=== PATIENT | male | born 1970 | race Caucasian/White ===

== ENCOUNTER 2023-08-10 08:05 | Day surgery (SDC) | payer MEDICAID ==
[2023-07-25 11:09] LABS: BASOPHILS % (AUTO) 0.3 % (0-1); EOSINOPHILS # (AUTO) 0.4 X10'3 (0-0.9); EOSINOPHILS % (AUTO) 4.3 % (0-6); LYMPHOCYTES # (AUTO) 0.6 X10'3 (1.1-4.8); LYMPHOCYTES % (AUTO) 6.3 % (21-51); MEAN CORPUSCULAR HEMOGLOBIN 26.7 PG (27.0-31.0); MEAN CORPUSCULAR HGB CONC 33.9 g/dL (33.0-36.5); MEAN CORPUSCULAR VOLUME 78.7 FL (78-98); MEAN PLATELET VOLUME 6.8 FL (7.4-10.4); MONOCYTES # (AUTO) 0.8 X10'3 (0-0.9); MONOCYTES % (AUTO) 8.5 % (2-12); NEUTROPHILS # (AUTO) 7.2 X10'3 (1.8-7.7); NEUTROPHILS % (AUTO) 80.6 % (42-75); PRE OP HEMATOCRIT 40.1 % (42.0-52.0); PRE OP HEMOGLOBIN 13.6 g/dL (14.0-17.9); PRE OP PLATELET COUNT 250 X10'3 (140-440); PRE OP WHITE BLOOD COUNT 8.9 10'3 (4.8-10.8); RED CELL DISTRIBUTION WIDTH 14.9 % (11.5-14.5)
[2023-07-25 11:30] LABS: ALBUMIN 3.8 G/DL (3.4-5.0); ALKALINE PHOSPHATASE 90 IU/L (46-116); BLOOD UREA NITROGEN 17 MG/DL (7-18); BUN/CREATININE RATIO 16.8 (10.0-20.0); CALCIUM 9.1 MG/DL (8.5-10.1); CHLORIDE 105 MMOL/L (99-107); CREATININE 1.01 MG/DL (0.60-1.10); PRE OP ALT 27 U/L (30-65); PRE OP ANION GAP 9 (8-16); PRE OP AST 16 U/L (10-37); PRE OP BILIRUB, TOTAL 0.4 MG/DL (0.0-1.0); PRE OP GLUCOSE 93 MG/DL (70-104); PRE OP SODIUM 141 MMOL/L (135-145); TOTAL CARBON DIOXIDE 27.3 MMOL/L (24-32); TOTAL PROTEIN 7.7 G/DL (6.4-8.2); eGFR 78 ML/MIN
[~2023-08-10] VITALS: Ht 165.1 cm; Wt 82.8 kg
[2023-08-10] VITALS (12 sets, daily range): BP systolic 94–135; BP diastolic 70–91; PULSE 83–93; RESP 8–19; TEMP 97.4; O2SAT 92–100
[~2023-08-10 08:05] MED LIST: MULT-1085 PO; TRAM50TA2 PO
[2023-08-10] MEDS: ringers solution, lacted 1,000 ML IV SCH (08:45)
[2023-08-10] MEDS: famotidine 20mg tablet PO ONE (08:45)
[2023-08-10] MEDS ORDERED: sevoflurane 250ml liquid IH ONE (09:52)
[2023-08-10] MEDS ORDERED: ondansetron/PF 4mg/2ml inj ONE (09:52)
[2023-08-10] MEDS ORDERED: neostigmine methylsulfate 1 MG/ML 10ml vial ONE (09:52)
[2023-08-10] MEDS ORDERED: glycopyrrolate 0.2mg/ml inj ONE (09:52)
[2023-08-10] MEDS ORDERED: fentaNYL/PF 50MCG/1 ML 2ML syringe ONE (10:01)
[2023-08-10] MEDS ORDERED: propofol inj 20 ML IV ONE (10:01)
[2023-08-10] MEDS ORDERED: midazolam 1 mg/ML 2ml injection ONE (10:01)
[2023-08-10] MEDS ORDERED: LIDOcaine 2% (20mg/ml) 5ml vial ONE (10:02)
[2023-08-10] MEDS ORDERED: rocuronium 10mg/ml inj IV ONE (10:13)
[2023-08-10] MEDS ORDERED: dexamethasone sod phosphate 4mg/ml inj. ONE (10:13)
== END 2023-08-10 13:36 | disposition home or self-care (01) ==
LOC: PAS 08:05
PROVIDERS: ATTEND Internal Medicine Critical Care Medicine
DX: R91.8 Other nonspecific abnormal finding of lung field (principal); J98.4 Other disorders of lung; J44.9 Chronic obstructive pulmonary disease, unspecified; G47.30 Sleep apnea, unspecified; K21.9 Gastro-esophageal reflux disease without esophagitis; M19.90 Unspecified osteoarthritis, unspecified site; Z87.891 Personal history of nicotine dependence; Z98.890 Other specified postprocedural states; Z85.72 Personal history of non-Hodgkin lymphomas; Z88.2 Allergy status to sulfonamides; Z88.0 Allergy status to penicillin; Z79.899 Other long term (current) drug therapy
CPT/HCPCS: 31624; 31628; 31629; 31653; 36415; 71045; 71250; 80053; 82948; 85025; 87015; 87070; 87102; 87116; 87206; 93005; 94760; J1100; J2250; J2405; J2704; J2710; J3010; J3490; J7120; Z7506; Z7508; Z7512; 31622; 31625; 31626; 31627; 31654; A4618

== ENCOUNTER 2023-11-18 12:02 | Emergency (ER) | payer MEDICAID, OTHER ==
[~2023-11-18] VITALS: Ht 165.1 cm; Wt 81.8 kg
[2023-11-18 12:04] VITALS: BP 145/88; PULSE 92; RESP 16; TEMP 98; O2SAT 98
[2023-11-18] MEDS: TETanus/Pertussis (Acell)/Diphther VAC/PF (Tdap-Adult) 0.5ml syringe IMVAC ONE (13:12)
== END 2023-11-18 13:20 | disposition home or self-care (01) ==
LOC: ER 12:03
DX: S61.032A Puncture wound without foreign body of left thumb without damage to nail, initial encounter (principal); Z88.0 Allergy status to penicillin; Z88.8 Allergy status to other drugs, medicaments and biological substances; Z79.899 Other long term (current) drug therapy; X58.XXXA Exposure to other specified factors, initial encounter; Y93.89 Activity, other specified; Y92.89 Other specified places as the place of occurrence of the external cause; Y99.8 Other external cause status
CPT/HCPCS: 90471; 90715; 99283

== ENCOUNTER 2023-12-18 10:24 | Outpatient (CLI) | payer BC ==
[2023-12-18] MEDS ORDERED: iohexol 300mg/ml 100ml inj. ONE (10:32)
== END 2023-12-18 23:59 | disposition home or self-care (01) ==
LOC: RAD 10:24
PROVIDERS: ATTEND Internal Medicine Hematology & Oncology
DX: C83.08 Small cell B-cell lymphoma, lymph nodes of multiple sites (principal); J32.9 Chronic sinusitis, unspecified
CPT/HCPCS: 70491; Q9967

== ENCOUNTER 2023-12-25 04:31 | Emergency (ER) | payer BC ==
[~2023-12-25] VITALS: Ht 165.1 cm; Wt 81.8 kg
[2023-12-25 04:33] VITALS: TEMP 98.1
[2023-12-25] MEDS: ketorolac tromethamine 15mg/ml inj. IV ONE (05:12)
[2023-12-25] MEDS: metoclopramide 5 mg/ml inj IV ONE (05:14)
[2023-12-25] MEDS: diphenhydrAMINE 50 mg/ml inj IV ONE (05:16)
[2023-12-25] MEDS: acetaminophen 1,000mg/100ml IV 100 ML IV ONE (05:21)
[2023-12-25] MEDS: oxyCODONE IR 5mg (immed. release) tablet PO ONE (06:09)
[2023-12-25] MEDS ORDERED: HYDR-3965 PO (06:18)
[2023-12-25 06:40] VITALS: PULSE 76
[2023-12-25 06:49] VITALS: BP 99/71; RESP 15; O2SAT 99
[2023-12-26] MEDS ORDERED: CYCL-394 PO (18:15)
== END 2023-12-25 06:56 | disposition home or self-care (01) ==
LOC: ER 04:32
DX: M54.32 Sciatica, left side (principal); Z88.0 Allergy status to penicillin; Z88.8 Allergy status to other drugs, medicaments and biological substances; Z79.899 Other long term (current) drug therapy
CPT/HCPCS: 96374; 96375; 99284; J0131; J1200; J1885; J2765

== ENCOUNTER 2023-12-26 17:09 | Emergency (ER) | payer BC ==
[~2023-12-26] VITALS: Ht 167.6 cm; Wt 75.0 kg
[2023-12-26] MEDS ORDERED: CYCL-394 PO (18:15)
[2023-12-26] MEDS: ketorolac trometh. 30mg/ml inj. IV ONE (18:32)
[2023-12-26] MEDS: dexamethasone sod phosphate 10mg/ml inj PO STA (18:32)
[2023-12-26] MEDS: morphine 4 MG/ML inj SYRINge IM ONE (18:32)
[2023-12-26 18:46] VITALS: BP 144/80; PULSE 90; RESP 20; TEMP 97.5; O2SAT 98
== END 2023-12-26 18:49 | disposition home or self-care (01) ==
LOC: ER 17:09
DX: S39.012A Strain of muscle, fascia and tendon of lower back, initial encounter (principal); M54.32 Sciatica, left side; R20.0 Anesthesia of skin; Z88.0 Allergy status to penicillin; Z88.8 Allergy status to other drugs, medicaments and biological substances; Z79.899 Other long term (current) drug therapy; X58.XXXA Exposure to other specified factors, initial encounter; Y93.89 Activity, other specified; Y92.89 Other specified places as the place of occurrence of the external cause; Y99.8 Other external cause status
CPT/HCPCS: 96372; 96374; 99284; J1100; J1885; J2270

== ENCOUNTER 2023-12-28 10:09 | Outpatient (CLI) | payer BC ==
[~2023-12-28 10:09] MED LIST changes: +CYCL-394 PO
== END 2023-12-28 23:59 | disposition home or self-care (01) ==
LOC: MRI 10:09
PROVIDERS: ATTEND Family Medicine
DX: M51.16 Intervertebral disc disorders with radiculopathy, lumbar region (principal); M48.061 Spinal stenosis, lumbar region without neurogenic claudication
CPT/HCPCS: 72148

== ENCOUNTER 2024-03-17 08:40 | Outpatient (CLI) | payer BC ==
[~2024-03-17 08:40] MED LIST changes: -CYCL-394 PO
== END 2024-03-17 23:59 | disposition home or self-care (01) ==
LOC: RAD 08:40
PROVIDERS: ATTEND Internal Medicine Critical Care Medicine
DX: R91.1 Solitary pulmonary nodule (principal); J98.4 Other disorders of lung
CPT/HCPCS: 71250

== ENCOUNTER 2024-04-26 17:01 | Emergency (ER) | payer BC, OTHER ==
[~2024-04-26] VITALS: Ht 165.1 cm; Wt 79.5 kg
[2024-04-26 17:07] VITALS: BP 127/83; PULSE 99; RESP 16; O2SAT 96
[2024-04-26] MEDS ORDERED: HYDR-3965 PO (17:54)
[2024-04-26 18:20] VITALS: TEMP 98
== END 2024-04-26 18:21 | disposition home or self-care (01) ==
LOC: ER 17:01
DX: R68.84 Jaw pain (principal); Z88.2 Allergy status to sulfonamides; Z88.0 Allergy status to penicillin; Z79.899 Other long term (current) drug therapy; Y08.89XA Assault by other specified means, initial encounter; Y93.89 Activity, other specified; Y92.89 Other specified places as the place of occurrence of the external cause; Y99.0 Civilian activity done for income or pay
CPT/HCPCS: 70150; 99283

== ENCOUNTER 2024-09-12 08:54 | Day surgery (SDC) | payer BC ==
[~2024-09-12] VITALS: Ht 165.1 cm; Wt 80.3 kg
[2024-09-12] VITALS (13 sets, daily range): BP systolic 106–126; BP diastolic 68–87; PULSE 74–93; RESP 14–17; TEMP 98.2; O2SAT 97–100
[2024-09-12] MEDS ORDERED: normal saline 1000ml 1,000 ML IV PRN (09:30)
[2024-09-12 09:40] LABS: BASOPHILS % (AUTO) 0.5 % (0-1); EOSINOPHILS # (AUTO) 0.3 X10'3 (0-0.9); EOSINOPHILS % (AUTO) 4.5 % (0-6); HEMATOCRIT 40.5 % (42.0-52.0); HEMOGLOBIN 13.5 g/dl (14.0-17.9); LYMPHOCYTES # (AUTO) 0.4 X10'3 (1.1-4.8); LYMPHOCYTES % (AUTO) 5.2 % (21-51); MEAN CORPUSCULAR HEMOGLOBIN 26.7 PG (27.0-31.0); MEAN CORPUSCULAR HGB CONC 33.2 g/dL (33.0-36.5); MEAN CORPUSCULAR VOLUME 80.3 FL (78-98); MEAN PLATELET VOLUME 6.8 FL (7.4-10.4); MONOCYTES # (AUTO) 0.6 X10'3 (0-0.9); NEUTROPHILS # (AUTO) 5.5 X10'3 (1.8-7.7); NEUTROPHILS % (AUTO) 80.8 % (42-75); PLATELET COUNT 235 X10'3 (140-440); RED BLOOD COUNT 5.04 X10'6 (4.70-6.10); RED CELL DISTRIBUTION WIDTH 14.4 % (11.5-14.5); WHITE BLOOD COUNT 6.8 X10'3 (4.5-11.0)
[2024-09-12] MEDS ORDERED: HYDR-3973 PO (09:43)
[2024-09-12] MEDS ORDERED: CHOL500050 PO (09:43)
[2024-09-12 09:50] LABS: APTT 34 SECONDS (22-32); PROTHROMBIN TIME 10.4 SECONDS (9.0-12.0)
[2024-09-12 09:51] LABS: ALANINE AMINOTRANSFERASE 36 U/L (12-78); ALBUMIN 4.1 G/DL (3.4-5.0); ALBUMIN/GLOBULIN RATIO 1.2 (1.1-1.5); ALKALINE PHOSPHATASE 90 IU/L (46-116); ANION GAP 8 (8-16); ASPARTATE AMINO TRANSFERASE 24 U/L (10-37); BILIRUBIN,TOTAL 0.5 MG/DL (0.1-1.0); BLOOD UREA NITROGEN 21 MG/DL (7-18); BUN/CREATININE RATIO 23.1 (10.0-20.0); CALCIUM 9.2 MG/DL (8.5-10.1); CHLORIDE 103 MMOL/L (99-107); CREATININE 0.91 MG/DL (0.60-1.10); GLUCOSE 95 MG/DL (70-104); POTASSIUM 3.9 MMOL/L (3.5-5.1); SODIUM 139 MMOL/L (135-145); TOTAL CARBON DIOXIDE 28.1 MMOL/L (24-32); TOTAL PROTEIN 7.5 G/DL (6.4-8.2); eCRCL 82 ML/MIN; eGFR 87 ML/MIN
[2024-09-12] MEDS ORDERED: midazolam 1 mg/ML 2ml injection ONE (10:39)
[2024-09-12] MEDS ORDERED: fentaNYL/PF 50MCG/1 ML 2ML syringe ONE (10:39)
== END 2024-09-12 12:45 | disposition home or self-care (01) ==
LOC: SSTAY O 08:54
PROVIDERS: ATTEND Internal Medicine Hematology & Oncology
DX: R19.07 Generalized intra-abdominal and pelvic swelling, mass and lump (principal); C85.80 Other specified types of non-Hodgkin lymphoma, unspecified site; M19.90 Unspecified osteoarthritis, unspecified site; Z79.01 Long term (current) use of anticoagulants; Z98.890 Other specified postprocedural states; Z88.2 Allergy status to sulfonamides; Z88.0 Allergy status to penicillin
CPT/HCPCS: 20206; 36415; 77012; 80053; 85025; 85610; 85730; J2250; J3010; J7030; A4615

== ENCOUNTER 2025-03-23 11:36 | Outpatient (CLI) | payer BC ==
[~2025-03-23 11:36] MED LIST changes: +CHOL500050 PO; +HYDR-3973 PO; -TRAM50TA2 PO
[2025-03-23] MEDS ORDERED: TRAM50TA2 PO (13:37)
--- NOTE | 2025-03-23 14:08 | RADIOLOGY REPORT ---
CT Chest without intravenous contrast INDICATION: F/UP R SIDED LUNG NODULE TECHNIQUE: Multidetector spiral CT of the chest was performed from the lung apices to the upper abdomen. Axial, coronal and sagittal multiplanar reformats were performed. Radiation Dose : 1. Chest: CTDI volume is 17.4 mGy. Dose-length product is 622.5 mGy*cm The dose indicators for CT are the volume Computed Tomography (CT) Dose Index (CTDIvol) and the Dose Length Product (DLP), and are measured in units of mGy and mGy-cm, respectively. These indicators are not patient dose, but values generated from the CT scanner acquisition factors. The report includes radiation exposure data for exposures received during this examination. Comparison: CT CT CHEST on DOS: 03/17/24, CT CT NECK SOFT TISSUES on DOS: 12/18/23, DI CHEST,SINGLE VIEW on DOS: 08/10/23, CT CT ION on DOS: 07/25/23 Findings: Lower neck: Normal thyroid. Lungs: Unchanged 0.7 cm nodule in the right upper lobe image 18. Newly seen ground-glass nodule in the left upper lobe measures 0.7 cm, image 38. Heart/Vascular Structures: Normal heart size. No pericardial effusion. Lymph Nodes: No adenopathy Pleura: No pleural effusion or significant pneumothorax. Musculoskeletal: No acute osseous abnormality. Degenerative changes of the spine. Soft tissues: Normal. Upper abdomen: Limited portions of the upper abdomen are unremarkable. IMPRESSION: Unchanged 0.7 cm nodule in the right upper lobe. Newly seen ground-glass nodule in the left upper lobe measures 0.7 cm. Follow-up CT in 6-12 months is recommended. Radiation optimization: All CT scans at this facility use at least one of these dose optimization techniques: automated exposure control mA and/or kV adjustment per patient size (includes targeted exams where dose is matched to clinical indication) or iterative reconstruction.
== END 2025-03-23 23:59 | disposition home or self-care (01) ==
LOC: 64 CT 11:36
PROVIDERS: ATTEND Internal Medicine Critical Care Medicine
DX: R91.8 Other nonspecific abnormal finding of lung field (principal)
CPT/HCPCS: 71250

== ENCOUNTER 2025-03-30 05:32 | Day surgery (SDC) | payer BC ==
--- NOTE | 2025-03-23 13:35 | ELECTROCARDIOGRAPH REPORT ---
[facility] Test Date: 2025-03-23 Test Time: 13:33:18 Pat Name: DEEPA RAY Department: [facility]-PRE-OP Patient ID: [id number] Room: Gender: M [employer] Sales: nuno : 1970 Requested By: AIME MCKAY Order Number: [id number] Reading MD: Dr. Tarun Schrader Measurements Intervals [place] Rate: 85 P: 67 [place]: 172 QRS: 1 QRSD: 96 T: 36 QT: 358 QTc: 426 Interpretive Statements Sinus rhythm RSR' in V1 or V2, right VCD or RVH Electronically Signed On 03-24-2025 8:48:[address] Tarun Schrader Please click the below link to view image of tracing.
[2025-03-23 13:55] LABS: MEAN PLATELET VOLUME 6.7 FL (7.4-10.4); PRE OP HEMATOCRIT 40.4 % (42.0-52.0); PRE OP HEMOGLOBIN 13.8 g/dL (14.0-17.9); PRE OP PLATELET COUNT 278 X10'3 (140-440); PRE OP WHITE BLOOD COUNT 14.0 10'3 (4.8-10.8); RED CELL DISTRIBUTION WIDTH 13.9 % (11.5-14.5)
[2025-03-23 14:02] LABS: CREATININE 1.09 MG/DL (0.60-1.10); PRE OP ALT 25 U/L (30-65); PRE OP ANION GAP 7 (8-16); PRE OP AST 13 U/L (10-37); PRE OP BILIRUB, TOTAL 0.4 MG/DL (0.0-1.0); PRE OP GLUCOSE 96 MG/DL (70-104); PRE OP POTASSIUM 4.2 MMOL/L (3.4-5.1); PRE OP SODIUM 142 MMOL/L (135-145); TOTAL CARBON DIOXIDE 30.8 MMOL/L (24-32); eGFR 71 ML/MIN
[~2025-03-30] VITALS: Ht 165.1 cm; Wt 79.4 kg
[~2025-03-30 05:32] MED LIST changes: -CHOL500050 PO; -HYDR-3973 PO; -MULT-1085 PO; +TRAM50TA2 PO
[2025-03-30] MEDS: ceFAZolin 2gm/dext,iso 50mL 50 ML IV ONE (06:09)
[2025-03-30] MEDS: ringers solution, lacted 1,000 ML IV SCH (06:09)
[2025-03-30] MEDS ORDERED: triamcinolone acetonide 40mg/ml inj ONE (06:36)
[2025-03-30] MEDS ORDERED: LIDOcaine 2% (20mg/ml) 5ml vial ONE ×2 (06:36→06:38)
[2025-03-30] MEDS ORDERED: BUPIVAcaine/PF 5 mg/ml 10ml ONE (06:37)
[2025-03-30 06:38] VITALS: BP 101/76; PULSE 91; RESP 16; TEMP 97.2; O2SAT 97
[2025-03-30] MEDS ORDERED: fentaNYL/PF 50MCG/1 ML 2ML syringe ONE (07:36)
[2025-03-30] MEDS: BUPIVAcaine/PF 2.5mg/ml (0.25%) 10ml vial IJ ONE (07:45)
[2025-03-30] MEDS ORDERED: labetalol 20mg/4ml (5mg/ml) syringe IV PRN (07:50)
[2025-03-30] MEDS ORDERED: morphine 4 MG/ML inj SYRINge IV PRN (07:50)
[2025-03-30] MEDS ORDERED: ringers solution, lacted 1,000 ML IV SCH (07:50)
[2025-03-30] MEDS ORDERED: HYDROmorphone/PF 0.2 MG/ML SYRINGE IV PRN ×2 (07:50)
[2025-03-30] MEDS ORDERED: hydrALAZINE 20mg/ml inj. IV PRN (07:50)
[2025-03-30] MEDS ORDERED: acetaminophen 1,000mg/100ml IV 100 ML IV PRN (07:50)
[2025-03-30] MEDS ORDERED: ondansetron/PF 4mg/2ml inj IV PRN (07:50)
[2025-03-30] MEDS ORDERED: LIDOcaine 0.5% (5mg/ml) 50ml vial ONE (08:05)
[2025-03-30] MEDS ORDERED: midazolam 1 mg/ML 2ml injection ONE (08:05)
[2025-03-30] MEDS ORDERED: propofol inj 20 ML IV ONE (08:13)
[2025-03-30 08:24] VITALS: BP 99/64; PULSE 80; RESP 14; O2SAT 97
[2025-03-30 08:30] VITALS: BP 111/79; PULSE 77; RESP 19; O2SAT 97
[2025-03-30 08:40] VITALS: BP 107/79; PULSE 83; RESP 10; O2SAT 96
[2025-03-30 08:50] VITALS: BP 117/82; PULSE 77; RESP 13; O2SAT 94
[2025-03-30 09:00] VITALS: BP 124/83; PULSE 77; RESP 12; O2SAT 97
--- NOTE | 2025-03-30 13:07 | OPERATIVE REPORT ---
Operative Report Providers to ~ Date of Procedure: Mar 30, 2025 Pre-Operative Diagnosis: Ganglion carpal tunnel trigger finger right hand Post-Operative Diagnosis Right wrist dorsal ganglion cyst, right wrist carpal tunnel syndrome, trigger finger right thumb index middle ring and small finger, Procedure Performed Right wrist dorsal ganglion cyst excision, right wrist carpal tunnel release open, right trigger finger release of the thumb, index, middle, ring, and small finger, Surgeon: Evelio Epperson MD Rn Wound None Anesthesiologist: Feliciano Schrader Type of Anesthesia: Regional Findings: Complications None Prosthetics\Implants used: None Estimated Blood Loss: None Specimen Removed: Mass from the hand Description of Procedure: The patient is a 54-year-old man who presented with the above issues regarding his right hand. Surgery is indicated after failure of conservative treatment and to improve function. Risks and benefits were discussed with the patient some of which include but are not limited to infection, bleeding, nerve or vessel damage, scar pain, limited motion and recurrence of the mass. He agreed to proceed. Once in the operating room the block was given and the arm was prepped and draped in usual manner. Time-out procedure was observed. All the potential surgical sites were marked. The ganglion was addressed 1st with a transverse incision on the dorsum of the wrist. There was a ganglion cyst arising from the wrist joint extending between the tendons. Tendons were retracted and protected and the cyst was excised down to the radiocarpal joint. Deep cauterization was done followed by irrigation and skin closure. The carpal tunnel was then addressed with a 3 cm incision in the palm ulnar to the thenar crease in line with the radial side of the ring finger through skin and palmar fascia. Dissection was taken down to the transverse carpal ligament which was then opened in line with the skin incision. The fascia proximal and distal to that was released to decompressing the nerve. No lesions were noted in the carpal tunnel that incision was then closed with nylon suture. The trigger fingers were then dressed starting with the thumb with a transverse incision over the MCP crease. Dissection was taken down to the tendon sheath and the nerves were protected. The sheath was divided midline along the A1 geovani. No ganglions or other lesions were noted. The next incision was made across the distal palm over the path of the index and middle flexor tendons. The next incision was made over the ring and small finger flexor tendons at the distal palm level. Starting with the index and working over to the other digits the tendon sheath was identified and nerves were protected. The tendon sheath was divided on all of the index middle ring and small fingers and tendons were inspected. No lesions were identified and all the incisions were then closed with nylon suture. Sterile dressing was applied after injection of Marcaine at the surgical sites. The tourniquet was released the hand perfused well and the patient was taken to the recovery room in stable condition EVELIO EPPERSON Jr., MD Mar 30, 2025 13:07
== END 2025-03-30 09:04 | disposition home or self-care (01) ==
LOC: PAS 05:32
PROVIDERS: ATTEND Orthopaedic Surgery Hand Surgery
DX: G56.01 Carpal tunnel syndrome, right upper limb (principal); M67.431 Ganglion, right wrist; M65.311 Trigger thumb, right thumb; M65.321 Trigger finger, right index finger; M65.331 Trigger finger, right middle finger; M65.341 Trigger finger, right ring finger; M65.351 Trigger finger, right little finger; G47.33 Obstructive sleep apnea (adult) (pediatric); K21.9 Gastro-esophageal reflux disease without esophagitis; M19.90 Unspecified osteoarthritis, unspecified site; Z87.891 Personal history of nicotine dependence; Z79.891 Long term (current) use of opiate analgesic; Z79.899 Other long term (current) drug therapy; Z90.49 Acquired absence of other specified parts of digestive tract; Z90.89 Acquired absence of other organs; Z96.651 Presence of right artificial knee joint; Z98.890 Other specified postprocedural states; Z88.2 Allergy status to sulfonamides
CPT/HCPCS: 25111; 26055; 36415; 64721; 80053; 82948; 85025; 93005; J0665; J2003; J2250; J2704; J3010; J3490; J7030; J7120; Z7506; Z7512; A4215; A6449; J3301

== ENCOUNTER 2025-05-04 06:04 | Inpatient (IN) | payer BC ==
[2025-04-27 11:30] LABS: MEAN PLATELET VOLUME 7.0 FL (7.4-10.4); PRE OP HEMATOCRIT 37.3 % (42.0-52.0); PRE OP HEMOGLOBIN 12.7 g/dL (14.0-17.9); PRE OP PLATELET COUNT 270 X10'3 (140-440); PRE OP WHITE BLOOD COUNT 10.0 10'3 (4.8-10.8); RED CELL DISTRIBUTION WIDTH 14.5 % (11.5-14.5)
[2025-04-27 11:49] LABS: CREATININE 1.01 MG/DL (0.60-1.10); PRE OP ALT 25 U/L (30-65); PRE OP ANION GAP 11 (8-16); PRE OP AST 20 U/L (10-37); PRE OP BILIRUB, TOTAL 0.4 MG/DL (0.0-1.0); PRE OP GLUCOSE 85 MG/DL (70-104); PRE OP POTASSIUM 4.3 MMOL/L (3.4-5.1); PRE OP SODIUM 140 MMOL/L (135-145); TOTAL CARBON DIOXIDE 27.5 MMOL/L (24-32); eGFR 77 ML/MIN
[2025-05-04] VITALS (18 sets, daily range): BP systolic 108–137; BP diastolic 68–93; PULSE 95–101; RESP 8–16; TEMP 97.1–97.7; O2SAT 92–100
[~2025-05-04] VITALS: Ht 165.1 cm; Wt 77.1 kg
[~2025-05-04 06:04] MED LIST changes: +HYDR-3973 PO
[2025-05-04] MEDS ORDERED: fentaNYL /PF 50mcg/ml 5ml ampule ONE (07:44)
[2025-05-04] MEDS ORDERED: midazolam 1 mg/ML 2ml injection ONE (07:44)
[2025-05-04] MEDS ORDERED: LIDOcaine 2% (20mg/ml) 5ml vial ONE (07:45)
[2025-05-04] MEDS ORDERED: propofol inj 20 ML IV ONE (07:45)
[2025-05-04] MEDS ORDERED: rocuronium 10mg/ml inj IV ONE ×2 (07:46→09:43)
[2025-05-04] MEDS ORDERED: hydrALAZINE 20mg/ml inj. IV PRN (07:55)
[2025-05-04] MEDS ORDERED: morphine 4 MG/ML inj SYRINge IV PRN (07:55)
[2025-05-04] MEDS ORDERED: labetalol 20mg/4ml (5mg/ml) syringe IV PRN (07:55)
[2025-05-04] MEDS ORDERED: fentaNYL/PF 50MCG/1 ML 2ML syringe IV PRN (07:55)
[2025-05-04] MEDS ORDERED: dexamethasone sod phosphate 4mg/ml inj. ONE (08:22)
[2025-05-04] MEDS: ceFAZolin 2gm/dext,iso 50mL 50 ML IV ONE ×2 (08:26)
[2025-05-04] MEDS ORDERED: BUPIVAcaine 2.5mg/ml inj 50ml vial (contains preservative) ONE (08:32)
[2025-05-04] MEDS ORDERED: LIDOcaine 1% (10mg/ml)w/preservative inj. 20ml MDV ONE (08:32)
[2025-05-04] MEDS ORDERED: gelatin sponge, absorbable (Gelfoam 100) sponge TP ONE (08:32)
[2025-05-04] MEDS ORDERED: ondansetron/PF 4mg/2ml inj ONE (08:35)
[2025-05-04] MEDS ORDERED: acetaminophen 1,000mg/100ml IV 100 ML IV ONE (08:37)
[2025-05-04] MEDS ORDERED: fentaNYL/PF 50MCG/1 ML 2ML syringe ONE ×2 (11:28→11:46)
[2025-05-04] MEDS ORDERED: methylPREDNISolone acetate 80mg/ml inj**IM only ONE (12:05)
[2025-05-04] MEDS: methylPREDNISolone acetate 80mg/ml inj**IM only IM ONE (12:30)
[2025-05-04] MEDS: fentaNYL/PF 50MCG/1 ML 2ML syringe IV PRN (13:38)
[2025-05-04] MEDS ORDERED: ondansetron/PF 4mg/2ml inj IV PRN (13:40)
[2025-05-04] MEDS ORDERED: PCA WASTE DOCUMENTATION 1 MG ML MC SCH (13:40)
[2025-05-04] MEDS: ringers solution, lacted 1,000 ML IV SCH ×2 (15:00)
[2025-05-04] MEDS: potassium CL 20mEq in D5-1/2NS 1,000 ML IV SCH (15:01)
[2025-05-04] MEDS: HYDROcodone/acetaminophen 10/325mg tab PO PRN (15:16)
[2025-05-04] MEDS: ceFAZolin/D5W- 1GM premix 50 ML IV SCH (16:15)
[2025-05-04] MEDS: ondansetron/PF 4mg/2ml inj IV PRN (18:54)
[2025-05-05 02:37] VITALS: BP 93/50; PULSE 84; RESP 13; TEMP 97.4; O2SAT 96
[2025-05-05] MEDS ORDERED: magnesium hydroxide 30ml (MOM) UD suspension PO PRN (05:00)
[2025-05-05] MEDS ORDERED: HYDROcodone/acetaminophen 10/325mg tab PO PRN ×2 (05:00)
[2025-05-05 06:00] VITALS: BP 96/38; PULSE 92; RESP 15; TEMP 97.8; O2SAT 95
[2025-05-05] MEDS: docusate sod 100mg capsule PO SCH (07:25)
[2025-05-05 10:00] VITALS: BP 108/69; PULSE 87; RESP 14; TEMP 97.8; O2SAT 97
[2025-05-05] MEDS: HYDROcodone/acetaminophen 10/325mg tab PO PRN (16:13)
--- NOTE | 2025-05-22 14:47 | HISTORY AND PHYSICAL ---
History & Physical - Short Providers to ~ History of Present Illness Chief Complain & History - Pinched sciatic nerve onset around September 2023, woke up with abnormal sensation in back- Back pain worsening approximately one week after onset- Mild left foot drop developed about one week after initial symptoms, persistent since onset- Tingling and numbness in toes on left side, unable to lift left foot fully- Back pain radiating down left leg, occasionally affecting right leg depending on movement- Symptoms aggravated by prolonged standing during work- No physical therapy or injections received prior to encounter- ER visit at [facility] for severe back pain, received muscle relaxant medication- MRI performed December 28, 2023, reviewed by RASHIDA Velez at [facility]; recommendation for laminotomy by Dr. Anthony Admitted at this time for lumbar dfecompression for treatment of lumbar spinal stenosis Allergies: Coded Allergies: sulfamethoxazole (Verified Allergy, Severe, SEVERE RASH, 05/01/25) Penicillins (Verified Adverse Reaction, Severe, N/V, 05/01/25) Home Medications Home Medications Active Reported Hydrocodone-Apap 10-325 Tablet (Acetaminophen/Hydrocodone Bitart) 10mg/325mg Tablet 1 Tab PO QID PRN Tramadol Hcl (Tramadol HCl) 50 Mg Tablet 2 Tab PO BID PRN Medications Tramadol 50 mgs 1 tabl a day Past Medical History Past Medical History Degenerative arthritis Parotid gland tumor Past Surgical History Past Surgical History s/p parotid gland tumor resection bilateral arthroscopic surgery knees Testicular release surgery ROS ROS Constitutional: No fevers, chills, sweats Eye: No recent visual problems ENMT: No ear pain, nasal congestion, sore throat Respiratory: No shortness of breath, cough Cardiovascular: No Chest pain, palpitations, syncope Gastrointestinal: No nausea, vomiting, diarrhea Genitourinary: No hematuria Exam Vitals: BP:146/78 HR:88/min RR:16/min Cardiac: RRR Pulmonary: CTA Abdomen: Soft, no masses, BS + Neurologic: NEURO EXAM: Mental status: Alert. Oriented to person, place, time and situation. [place] coma scale: TOTAL: 15 Eye opening: Spontaneus - 4_ Motor: Obeys commands - 6 Verbal: Normal conversation - 5 Speech: Fluent and appropiate Appropriately interactive. No left/right confusion, no apraxia, no visual or sensory neglect. Cranial Nerves: II, : visual jorge full to confrontation III, IV, : Reactive isocoria; EOMI, no ptosis, normal saccades V: Facial Sensation intact to light touch bilaterally VII: Face symmetric without weakness VIII: Can hear finger rub bilaterally and equally IX, X: Voice normal, elevates palate symmetrically XI: SCM/trapezius 5/5 bilaterally XII: Tongue protrudes midline without atrophy or fasciculations Motor: Observation/inspection:. Normal Bulk and tone. Pronator drift.: Absent Upper Extremity Motor: Biceps: 5/5 Right, 5/5 Left Deltoid: 5/5 Right, 5/5 Left Triceps: 5/5 Right, 5/5 Left Distribution Center Associate, interossei: 5/5 Right, 5/5 Left Lower Extremity Motor: Hip flexion: 5/5 Right, 5/5 Left Knee flexion: 5/5 Right, 5/5 Left Knee extension: 5/5 Right, 5/5 Left Plantar flexion: 5/5 Right, 5/5 Left Dorsi flexion: 5/5 Right, 5/5 Left Reflexes: Biceps: 2+ Right, 2+ Left Triceps: 2+ Right, 2+ Left Patellar: 2+ Right, 2+ Left Clonus: Absent : Gibson: Absent : Babinsky: Absent : Coordination and Gait: [id number]: No dysmetria Not ambulated Sensation: Intact light touch, proprioception and temperature. Diagnostic Data Diagnostic Data: - MRI lumbar spine dated December: large left lateral disc herniation at L4L5 with nerve root compression - Moderate to severe foraminal stenosis at L3L4 bilaterally - Degenerative disc disease at L2L3 with narrowed disc space - Mild scoliosis and multilevel degenerative changes from L1 through L5 Advance Care Planning Advanced Care plannin - 30 Minutes Problem\Assessment\Plan Problems: (1) Lumbar spinal stenosis Assessment & Plan: - Proceed with decompression surgery targeting the 4-5 and 3-4 lumbar levels, specifically performing laminotomy and foraminal decompression on the left side. The approach will avoid spinal fusion at this time, as fusion is associated with longer recovery and may accelerate degeneration at adjacent levels. The goal is to relieve nerve compression and provide the best chance for motor recovery, acknowledging that the likelihood of significant improvement is low due to the chronicity of the deficit. Patient is admitted for this procedure (2) Spinal stenosis of lumbar region with radiculopathy Assessment & Plan: - Proceed with decompression surgery targeting the 4-5 and 3-4 lumbar levels, specifically performing laminotomy and foraminal decompression on the left side. The approach will avoid spinal fusion at this time, as fusion is associated with longer recovery and may accelerate degeneration at adjacent levels. The goal is to relieve nerve compression and provide the best chance for motor recovery, acknowledging that the likelihood of significant improvement is low due to the chronicity of the deficit. KIMI FINCH MD May 22, 2025 14:47
--- NOTE | 2025-05-22 15:11 | OPERATIVE REPORT ---
Operative Report Providers to ~ Date of Procedure: May 04, 2025 Pre-Operative Diagnosis: Lumbar spinal stenosis Post-Operative Diagnosis SAME as PRE-Op Procedure Performed L3-L4 and L4-L5 Bilateral laminectomies foraminotomies L4-L5 microdiscectomy Surgeon: Bandar Bustillo MD Canvas Shrinker None Anesthesiologist: Amos Solomon Type of Anesthesia: General Findings: As per post op diagnosis Complications none Estimated Blood Loss: 20 cc Specimen Removed: none Description of Procedure: After informed consent was obtained, the patient was brought to the operating room and placed under general endotracheal anesthesia. Prophylactic antibiotics were administered. The patient was positioned prone on a Thang frame, with all bony prominences carefully padded. The lumbar region was prepped and draped in the usual sterile fashion. Localization and Exposure: Using fluoroscopy, the L3L4 and L4L5 levels were confirmed and marked. A midline skin incision approximately 6 cm in length was made over the lumbosacral region. Dissection was carried through the subcutaneous tissue and thoracolumbar fascia with electrocautery. The paraspinal muscles (erector spinae group) were dissected subperiosteally and reflected laterally using Holloway elevators to expose the laminae of L3, L4, and L5 bilaterally. Self-retaining retractors were placed for adequate visualization of the operative field. ? L3L4 and L4L5 Bilateral Laminectomies and Foraminotomies: Using a high-speed drill and Kerrison rongeurs, the lamina of L4 was thinned and resected, followed by removal of the inferior aspect of the L5 lamina and the superior aspect of the S1 lamina, performing bilateral laminectomies at the L3L4 and L4L5 levels. Hypertrophied ligamentum flavum was identified and resected bilaterally, exposing the underlying dural sac and traversing nerve roots. The lateral recesses and foramina were decompressed bilaterally with careful undercutting of the medial facets, performing foraminotomies to free the exiting L3, L4, and L5 nerve roots. Excellent decompression of the thecal sac and both foramina was achieved. ? Right L4L5 Discectomy: Attention was turned to the right L4L5 interspace. The right L5 nerve root was identified and gently retracted medially. A bulging and degenerated L4-L5 disc was visualized beneath the nerve root. A small annulotomy was made in the posterior annulus with a #15 blade. Herniated disc fragments were removed using pituitary rongeurs and curettes. Multiple free and loose fragments were evacuated from the subannular and epidural spaces. After adequate decompression, the disc space was irrigated with saline, and careful inspection confirmed that the nerve root and dural sac were completely free of compression and pulsating normally. Hemostasis was achieved with bipolar cautery and application of hemostatic a gents (Surgicel / Gelfoam) as needed. ? Closure: The wound was copiously irrigated with warm antibiotic saline solution. No cerebrospinal fluid leak was observed. The deep fascia was closed with interrupted 0 Vicryl sutures, the subcutaneous tissue with 2-0 Vicryl, and the skin with 3-0 nylon in a simple interrupted fashion. A subfascial closed-suction drain was placed and brought out through a separate stab incision. BANDAR FINCH MD May 22, 2025 15:11
--- NOTE | 2025-05-22 15:17 | DISCHARGE SUMMARY ---
Discharge Summary Providers to CC ~ Discharge Summary Admission Diagnosis: Lumbar spinal stenosis Hospital Course DATE OF ADMISSION: DATE OF DISCHARGE: Discharge Diagnosis\Comment: Lumbar spinal stenosis s/p Lumbar laminectomy, discectomy Operations\Procedures: L3-L4, L4-L5 laminectomies , foraminotomies and L4-L5 discectomy Consultants: None Complications: none Condition on DC: Stable Discharge Summary: Patient admitted for treatment of lumbar spinal styenosis and Radiculopathy with right foot drop Underwent bilateral laminectomies and foraminotomies. Did well in post op period, Ambulating Pain under control Discharged home on self care. *Problems/Diagnosis: (1) Lumbar spinal stenosis (2) Spinal stenosis of lumbar region with radiculopathy Total Time Spent on D/C: Up to 30 Minutes KIMI FINCH MD May 22, 2025 15:17
== END 2025-05-05 16:20 | disposition home or self-care (01) | DRG 520 ==
LOC: PAS 06:04 → PACU 13:46 → ORTHO 4S 14:47
PROVIDERS: ADMIT Neurological Surgery; ATTEND Neurological Surgery
PROC: 0SB20ZZ Excision of Lumbar Vertebral Disc, Open Approach (ICD-10-PCS; 2025-05-04)
PROC: 01NB0ZZ Release Lumbar Nerve, Open Approach (ICD-10-PCS; 2025-05-04)
PROC: 00NY0ZZ Release Lumbar Spinal Cord, Open Approach (ICD-10-PCS; principal; 2025-05-04 08:22)
DX: M48.061 Spinal stenosis, lumbar region without neurogenic claudication (principal); M21.371 Foot drop, right foot; M21.372 Foot drop, left foot; M54.16 Radiculopathy, lumbar region; Z88.2 Allergy status to sulfonamides; Z79.899 Other long term (current) drug therapy; Z88.0 Allergy status to penicillin
CPT/HCPCS: Z7506; Z7508; 36415; 72100; 76000; 80053; 82948; 85025; 87081; 97161; 97530; A4215; A4618; A6213; A6402; A6449; A7000; C1758; G0378; J0131; J0690; J1010; J1100; J2003; J2250; J2405; J2704; J3010; J3480; J3490; J7050; J7120